=== PATIENT | male | born 2000 | race African-American/Black ===

== ENCOUNTER 2021-07-07 18:06 | Emergency (ER) | payer OTHER, SELFPAY ==
[2021-07-07 18:15] VITALS: BP 131/59; PULSE 91; RESP 14; TEMP 36.7; O2SAT 97; BMI 24.3
== END 2021-07-07 20:16 | disposition left against medical advice (07) ==
PROVIDERS: Emergency Provider Emergency Medicine
CPT/HCPCS: 99281